=== PATIENT | female | born 1945 | race Caucasian/White ===

== ENCOUNTER → 2017-05-26 | Outpatient (REF) ==
[~2017-05-26] MED LIST: BYETTA 10M600 MCG/SY SC; BYETTA 10M600 MCG/SY SQ; COZAAR 25MG25 MG/TAB PO; CRESTOR40 MG PO; DIOVAN 160MG160 MG PO; GLUCOPHAGE850 MG/TAB PO; LIPITOR 40MG TA40 MG PO; NORVASC 10MG10 MG PO
== END ==
LOC: WSOH 09:30
DX: Z02.89 Encounter for other administrative examinations (principal)

== ENCOUNTER → 2017-07-04 | Outpatient (REF) | LOC: WSOH 09:30 | DX: Z02.89 Encounter for other administrative examinations (principal) ==

== ENCOUNTER 2022-03-27 15:31 | Emergency (ER) | payer MEDICARE, BC ==
[~2022-03-27] VITALS: Ht 157.5 cm; Wt 54.5 kg
[2022-03-27 15:40] VITALS: TEMP 97.8
[2022-03-27 16:16] LABS: BASO % 0.4 % (0.0-2.0); EOS # 0.2 K/mm3 (0.0-0.7); GRAN # 5.3 K/mm3 (1.4-6.5); GRAN % 69.4 % (42.2-75.2); HEMATOCRIT 37.8 % (37.0-47.0); HEMOGLOBIN 12.4 g/dl (12.5-16.0); LYMPH # 1.6 K/mm3 (1.2-3.4); LYMPH % 21.6 % (20.0-51.0); MEAN CELL VOLUME 92 fl (80.0-100.0); MEAN CORPUSCULAR HEMOGLOBIN 30 pg (27-31); MEAN CORPUSCULAR HGB CONC 33 g/dl (33.0-37.0); MEAN PLATELET VOLUME 11.1 fl (7.4-10.4); MONO # 0.5 K/mm3 (0.1-0.6); MONO % 6.3 % (1.7-9.3); PLATELET COUNT 231 K/mm3 (130-400); RED BLOOD COUNT 4.11 M/mm3 (4.10-5.30); REDCELL DISTRIBUTION WIDTH-CV 13.4 % (11.5-14.5)
[2022-03-27 16:34] LABS: ALANINE AMINOTRANSFERASE 17 U/L (0-55); ALBUMIN 3.5 gm/dL (3.4-4.8); ALKALINE PHOSPHATASE 102 U/L (40-150); ANION GAP 13 mmol/L (7-16); AST,SGOT 18 U/L (5-34); BILIRUBIN,TOTAL 0.5 mg/dL (0.2-1.2); BLOOD UREA NITROGEN 25 mg/dL (10-20); C-REACTIVE PROTEIN 0.09 mg/dL (0.00-0.50); CALCIUM 9.5 mg/dL (8.4-10.2); CARBON DIOXIDE 23 mmol/L (23-31); CHLORIDE 105 mmol/L (98-107); CREATINE KINASE 29 U/L (29-168); CREATININE, serum 0.93 mg/dL (0.57-1.11); GLUCOSE 127 mg/dL (70-99); POTASSIUM 4.5 mmol/L (3.5-4.5); SODIUM 141 mmol/L (136-145)
[2022-03-27 16:41] LABS: TROPONIN-I < 0.010 ng/mL (0.00-0.033)
[2022-03-27] MEDS ORDERED: DECADRON6 MG PO (17:57)
[2022-03-27] MEDS ORDERED: TUSS PO (17:57)
[2022-03-27 18:17] VITALS: BP 101/51; PULSE 74
== END 2022-03-27 18:17 | disposition home or self-care (01) ==
LOC: COL.ER 15:31
PROVIDERS: Emergency Medicine
DX: U07.1 COVID-19 (principal)
CPT/HCPCS: J1100; J7030

== ENCOUNTER 2022-12-23 14:42 | Observation (INO) | payer MEDICARE, BC ==
[2022-12-23] VITALS (155 sets, daily range): BP systolic 139; BP diastolic 48; PULSE 79; TEMP 97.8; O2SAT 85–100
[~2022-12-23] VITALS: Ht 157.5 cm; Wt 55.4 kg
[~2022-12-23 14:42] MED LIST changes: +DECADRON6 MG PO; +TUSS PO
[2022-12-23 17:27] LABS: BASO % 0.1 % (0.0-2.0); GRAN # 11.9 K/mm3 (1.4-6.5); GRAN % 88.9 % (42.2-75.2); HEMATOCRIT 37.3 % (37.0-47.0); HEMOGLOBIN 12.3 g/dl (12.5-16.0); LYMPH # 0.8 K/mm3 (1.2-3.4); LYMPH % 5.7 % (20.0-51.0); MEAN CELL VOLUME 90 fl (80.0-100.0); MEAN CORPUSCULAR HEMOGLOBIN 30 pg (27-31); MEAN CORPUSCULAR HGB CONC 33 g/dl (33.0-37.0); MEAN PLATELET VOLUME 11.1 fl (7.4-10.4); MONO # 0.7 K/mm3 (0.1-0.6); MONO % 4.9 % (1.7-9.3); PLATELET COUNT 240 K/mm3 (130-400); RED BLOOD COUNT 4.15 M/mm3 (4.10-5.30); REDCELL DISTRIBUTION WIDTH-CV 13.4 % (11.5-14.5)
[2022-12-23 17:44] LABS: ALANINE AMINOTRANSFERASE 14 U/L (0-55); ALBUMIN 3.7 gm/dL (3.4-4.8); ALKALINE PHOSPHATASE 99 U/L (40-150); ANION GAP 16 mmol/L (7-16); AST,SGOT 10 U/L (5-34); BILIRUBIN,TOTAL 0.6 mg/dL (0.2-1.2); BLOOD UREA NITROGEN 19 mg/dL (10-20); C-REACTIVE PROTEIN 4.79 mg/dL (0.00-0.50); CALCIUM 9.8 mg/dL (8.4-10.2); CARBON DIOXIDE 19 mmol/L (23-31); CHLORIDE 104 mmol/L (98-107); CREATININE, serum 0.83 mg/dL (0.57-1.11); GLUCOSE 209 mg/dL (70-99); POTASSIUM 3.8 mmol/L (3.5-4.5); SODIUM 139 mmol/L (136-145); TOTAL PROTEIN 7.4 gm/dL (6.2-8.1)
[2022-12-23 17:50] LABS: TROPONIN-I < 0.010 ng/mL (0.00-0.033)
--- NOTE | 2022-12-23 22:16 | NUR ---
Pt desating down to 89% on 1.5NC in her moutn. RT called to deliver PRN albuterol neb. Pt having a frequent uncontrolled barky cough. IS and acapella given at bedside to help with atlectasis. Pt pending bronoscopy tomorrow.
[2022-12-23] MEDS ORDERED: COZAAR100 MG PO (22:47)
[2022-12-23] MEDS ORDERED: OZEMPIC1 MG/0.71 SQ (22:50)
--- NOTE | 2022-12-23 23:43 | NUR ---
AROUND 2013 ER NURSE GAVE REPORT. 2029 PT IS ON UNIT AND IN THE BED. VITALS WERE STABLE UPON ARRIVAL. AROUND 2114 PT'S SPO2 STARTED TO DESTAT AROUND 85%-90%. 1 L NC WAS APPLIED AND THAT DIDN'T SEEM TO HELP THEN PUT IN THE MOUTH AND THAT BROUGHT IT UP TO LOW 90'S. CALLED HOSPITALIST ABOUT IT AND GOT ORDERS TO PUT AN OXYMASK ON. PT IS ABLE TO GET UP AND GO TO THE BATHROOM ON THEIR OWN. AT THIS TIME PT IS RESTING IN BED WITH 1 L OXYMASK WITH SPO2 OF 91%.
[2022-12-24] VITALS (405 sets, daily range): BP systolic 118–138; BP diastolic 58–75; PULSE 86–105; TEMP 97.3–97.9; O2SAT 71–100
[2022-12-24] MEDS ORDERED: VITAMINC1000TA (01:58)
[2022-12-24] MEDS ORDERED: MASON NATURAL2000 IU PO (01:59)
[2022-12-24 06:13] LABS: HEMOGLOBIN 11.4 g/dl (12.5-16.0); MEAN CELL VOLUME 91 fl (80.0-100.0); MEAN CORPUSCULAR HEMOGLOBIN 29 pg (27-31); MEAN CORPUSCULAR HGB CONC 32 g/dl (33.0-37.0); MEAN PLATELET VOLUME 11.2 fl (7.4-10.4); PLATELET COUNT 198 K/mm3 (130-400); RED BLOOD COUNT 3.92 M/mm3 (4.10-5.30); REDCELL DISTRIBUTION WIDTH-CV 13.7 % (11.5-14.5)
[2022-12-24 06:22] LABS: HEMATOCRIT 35.5 % (37.0-47.0)
[2022-12-24 06:30] LABS: CALCIUM 9.4 mg/dL (8.4-10.2); CREATININE, serum 0.82 mg/dL (0.57-1.11); POTASSIUM 3.2 mmol/L (3.5-4.5)
[2022-12-24 06:42] LABS: BAND 16 % (0-10); LYMPHOCYTE 3 % (20.0-51.0); NEUTROPHILS 79 % (42.0-75.2); PLATELET ESTIMATE NORMAL (NORMAL)
--- NOTE | 2022-12-24 06:50 | NUR ---
PT'S HR IS SR IN THE 80'S-90'S. SPO2 IS IN LOW 90'S ON RA AND WILL DROP DOWN TO 85% WHEN SLEEPING BUT WILL GO BACK UP TO 90% IN A COUPLE OF SECONDS. BP HAS BEEN STABLE. RR WAS IN THE HIGH 20'S AND LOW 30'S WHEN SHE FIRST CAME ON THE UNIT AND IS NOW IN THE LOW 20'S. PT IS INDEPENDENT AND ALERT AND ORIENTED X4. WILL GIVE REPORT TO DAY SHIFT NURSE.
--- NOTE | 2022-12-24 08:28 | NUR ---
RECEIVED REPORT FROM JERED Riddle [facility] RADHA. PATIENT REPORTS SHE IS FEELING BETTER THAN SHE WAS YESTERDAY AND WANTS TO GO HOME. SHIFT ASSESSMENT COMPLETED. MEDICATIONS ADMINISTERED PER EMAR. PATIENT REPORTS NO CONCERNS AT THIS TIME. WILL CONTINUE TO MONITOR.
--- NOTE | 2022-12-24 08:40 | NUR ---
SW met with patient to complete intake. Patient reports that she lives at home with her Marylin ([phone]) out side of [place] near [place]. She is independent with her ADL's and IADL's. PCP is and she utilizes [facility] pharmacy for prescriptions. Patient reports that she does have a DPOA-HC and DNR established, however a copy is not in her EMR.
[2022-12-24] MEDS ORDERED: TESSALON P100 MG/CAP PO (10:12)
[2022-12-24] MEDS ORDERED: MUCUS RELIEF400 M1 PO (10:13)
[2022-12-24] MEDS ORDERED: NEB MC (10:14)
[2022-12-24] MEDS ORDERED: ZOFRAN ODT4 MG PO (10:14)
[2022-12-24] MEDS ORDERED: HYPERSAL 4 ML4 M1 INH (10:17)
[2022-12-24] MEDS ORDERED: IPRATROPIUM BROM3 M1 IH (10:18)
[2022-12-24] MEDS ORDERED: PREDNISONE10 MG PO (10:20)
[2022-12-24] MEDS ORDERED: DOXYCYCLINE 10100 MG PO (10:21)
[2022-12-24] MEDS ORDERED: CEFTIN500 MG PO (10:22)
[2022-12-24] MEDS ORDERED: SPIRIVA RE2.5 MCG/Ac IH (10:23)
[2022-12-24] MEDS ORDERED: RT ADVAIR HFA 2312 G IH (10:24)
[2022-12-24] MEDS ORDERED: CHERATUSSIN AC240 ML PO (10:26)
--- NOTE | 2022-12-24 10:59 | NUR ---
EDUCATION AND DISCHARGE INFORMATION COMPLETED WITH PATIENT. PATIENT STATED UNDERSTANDING. ON HIS WAY TO PICK PATIENT UP TO TAKE HOME.
== END 2022-12-24 11:15 | disposition home or self-care (01) ==
LOC: COL.ER 14:42 → ICU 19:16
PROVIDERS: Emergency Medicine; Student in an Organized Health Care Education/Training Program; ADMIT Internal Medicine
DX: J12.89 Other viral pneumonia (principal); B97.10 Unspecified enterovirus as the cause of diseases classified elsewhere; B97.89 Other viral agents as the cause of diseases classified elsewhere; R05.9 Cough, unspecified; R11.0 Nausea; E11.9 Type 2 diabetes mellitus without complications; Z86.16 Personal history of COVID-19; E87.20 Acidosis, unspecified; I10 Essential (primary) hypertension; Z66 Do not resuscitate; Z79.84 Long term (current) use of oral hypoglycemic drugs; Z87.891 Personal history of nicotine dependence
CPT/HCPCS: A9284; J0696; J1650; J2930; J7030; Q9967

== ENCOUNTER 2023-01-13 07:50 | Day surgery (SDC) | payer MEDICARE, BC ==
[~2023-01-13] VITALS: Ht 157.5 cm; Wt 55.4 kg
[~2023-01-13 07:50] MED LIST changes: +CEFTIN500 MG PO; +CHERATUSSIN AC240 ML PO; +COZAAR100 MG PO; +DOXYCYCLINE 10100 MG PO; +HYPERSAL 4 ML4 M1 INH; +IPRATROPIUM BROM3 M1 IH; +MASON NATURAL2000 IU PO; +MUCUS RELIEF400 M1 PO; +NEB MC; +OZEMPIC1 MG/0.71 SQ; +PREDNISONE10 MG PO; +RT ADVAIR HFA 2312 G IH; +SPIRIVA RE2.5 MCG/Ac IH; +TESSALON P100 MG/CAP PO; +VITAMINC1000TA; +ZOFRAN ODT4 MG PO
[2023-01-13 08:20] VITALS: BP 121/72; PULSE 65; TEMP 97.1
--- NOTE | 2023-01-13 08:43 | NUR ---
Patient arrived to unit and ambulates to room 3 with steady gait. Patient is alert and oriented. Patient prefers to wait out in waiting room. Consent forms reviewed and signed. NPO status reviewed. Medications and allergies reviewed. Patient changed in to clean gown. Vital signs obtained. Iv started in left hand on 2nd attempt with 22G. Patient sitting in recliner, waiting to go back for procedure.
[2023-01-13] MEDS ORDERED: LEXAPRO20 MG PO (08:58)
[2023-01-13 10:10] VITALS: BP 102/68; PULSE 60; TEMP 97.1
--- NOTE | 2023-01-13 10:10 | NUR ---
1010 PATIENT RETURNS TO ROOM 3 VIA CART. PATIENT IS DROWSY, BUT ALERTS TO VERBAL STIMULI. PATIENT AMBULATES TO RECLINER WITH THE ASSISTANCE OF 2 NURSES. VITAL SIGNS OBTAINED. RESPIRATIONS EVEN AND UNLABORED. PATIENT BROUGHT BACK TO ROOM. NO C/O PAIN. PATIENT REFUSED ANYTHING TO EAT OR DRINK, STATING THAT SHE IS GETTING SOMETHING TO EAT ON THE WAY HOME. 1025 DISCHARGE INSTRUCTIONS REVIEWED WITH PATIENT AND PATIENT . BOTH VERBALIZED UNDERSTANDING. 1030 DISCONTINUED IV FROM LEFT HAND WITH NO DIFFICULTIES. 1037 DOCTOR IN TO SPEAK WITH PATIENT. 1040 PATIENT DISCHARGES FROM UNIT VIA WHEELCHAIR IN STABLE CONDITION.
[2023-01-13 10:25] VITALS: BP 110/60; PULSE 57
[2023-01-13 10:35] VITALS: BP 115/76; PULSE 58
== END 2023-01-13 10:40 | disposition home or self-care (01) ==
LOC: SDCO 07:50
DX: Z12.11 Encounter for screening for malignant neoplasm of colon (principal); K57.30 Diverticulosis of large intestine without perforation or abscess without bleeding; K64.0 First degree hemorrhoids; I10 Essential (primary) hypertension; Z87.891 Personal history of nicotine dependence; Z86.010 Personal history of colon polyps
CPT/HCPCS: J2704; J7120